=== PATIENT | male | born 1960 | race Caucasian/White ===

== ENCOUNTER 2023-04-08 21:03 | Inpatient (IN) | payer BC ==
[~2023-04-08] VITALS: Ht 188 cm; Wt 139.7 kg
[~2023-04-08 21:03] MED LIST: CLIN-22 PO; GLU500 PO; LOSA100T4 PO; MIC5 PO; OMEP20CA15 PO; RIVA20TA PO; SIMV-343 PO; SITA100T11 PO
[2023-04-08 21:15] VITALS: BP_SYST 195; PULSE 79; RESP 19; TEMP 98; O2SAT 99
[2023-04-08 21:52] LABS: BASOPHILS # (AUTO) 0.2 K/uL (0.0-0.2); BASOPHILS % (AUTO) 1.4 % (0.0-2.0); EOSINOPHILS % (AUTO) 0.2 % (0.0-4.0); HEMATOCRIT 39.7 % (36-54); HEMOGLOBIN 13.2 g/dL (14.0-18.0); LYMPHOCYTES # (AUTO) 0.6 K/uL (1.0-5.5); LYMPHOCYTES % (AUTO) 5.6 % (20.5-51.5); MEAN CORPUSCULAR HEMOGLOBIN 29 pg (27-31); MEAN CORPUSCULAR HGB CONC 33 % (32-36); MEAN CORPUSCULAR VOLUME 85 fL (79.0-98.0); MONOCYTES # (AUTO) 0.7 K/uL (0.0-1.0); MONOCYTES % (AUTO) 6.3 % (1.7-9.3); NEUTROPHILS # (AUTO) 9.4 K/uL (1.8-7.7); NEUTROPHILS % (AUTO) 86.5 % (40.0-70.0); PLATELET COUNT (AUTO) 192 K/uL (130-430); RED BLOOD CELL COUNT(AUTO) 4.64 MIL/uL (4.2-6.2); WHITE BLOOD COUNT (AUTO) 10.8 K/uL (4.8-10.8)
[2023-04-08 22:10] LABS: PROTHROMBIN TIME 10.7 SECS (9.5-12.5)
[2023-04-08 22:23] LABS: ALANINE AMINOTRANSFERASE 16 U/L (12-78); ALBUMIN 2.2 g/dL (3.4-4.8); ALCOHOL, BLOOD 4 mg/dL (<10); ANION GAP 13 (5-15); ASPARTATE AMINOTRANSFERASE 34 U/L (10-37); CHLORIDE 113 mmol/L (98-107); CREATININE 1.87 mg/dL (0.55-1.30); GFR AFRICAN AMERICAN 48 mL/min (>90); GLUCOSE 232 mg/dL (74-106); PHOSPHORUS 3.6 mg/dL (2.7-4.5); THYROID STIMULATING HORMONE 1.63 uIu/mL (0.34-4.82); TOTAL BILIRUBIN 0.4 mg/dL (0.0-1.0); UREA NITROGEN, BLOOD 32 mg/dL (8-21)
[2023-04-08 22:35] LABS: CALCIUM 6.9 mg/dL (8.4-11.0)
[2023-04-08] MEDS ORDERED: CALCIUM GLUCONATE 1 GM/10 ML VIAL IVP ONE (23:00)
[2023-04-08] MEDS ORDERED: NACL 0.9% 1,000 ML IV ONE (23:00)
[2023-04-08 23:57] LABS: CKMB RELATIVE INDEX 1.3 (0.0-2.9); CREATINE KINASE MB 15.5 ng/mL (0-3.6)
[2023-04-09] MEDS ORDERED: D5/0.45 NS 1,000 ML IV ONE (02:15)
[2023-04-09 02:21] LABS: BILIRUBIN,URINE NEGATIVE (NEGATIVE); COLOR,URINE YELLOW (YELLOW); GLUCOSE,URINE 2+ (NEGATIVE); KETONES,URINE TRACE (NEGATIVE); LEUKOCYTE ESTERASE ,URINE NEGATIVE (NEGATIVE); NITRITE, URINE NEGATIVE (NEGATIVE); PH,URINE 5.5 (5.0-8.0); PROTEIN URINE 3+ (NEGATIVE); UROBILINOGEN,URINE 0.2 (0.2-1.0)
[2023-04-09 02:29] LABS: BLOOD, URINE 1+ (NEGATIVE); CLARITY/URINE HAZY (CLEAR)
[2023-04-09 02:30] LABS: BACTERIA,URINE None Seen /HPF (None Seen); WBC,URINE 0-3 /HPF (0-3)
[2023-04-09 02:33] LABS: BARBITURATE, URINE NEGATIVE (NEG <=200); BENZODIAZEPINE, URINE NEGATIVE (NEG <=150); CANNABINOID, URINE NEGATIVE (NEG <=50); COCAINE, URINE POSITIVE (NEG <=150); METHAMPHETAMINES SCREEN,URINE NEGATIVE (NEG <=500); OPIATE, URINE NEGATIVE (NEG <=100); PHENCYCLIDINE SCREEN,URINE NEGATIVE (NEG <=25); UR TRICYCLIC ANTIDEPRESSANTS NEGATIVE (NEG <=300); URINE AMPHETAMINE NEGATIVE (NEG <=500); URINE METHADONE NEGATIVE (NEG <=200); URINE OXYCODONE SCREEN NEGATIVE (NEG <=100); URINE PROPOXYPHENE SCREEN NEGATIVE (NEG <=300)
[2023-04-09 04:21] VITALS: BP_SYST 179; PULSE 64; RESP 18; TEMP 97.2; O2SAT 98
[2023-04-09] MEDS: INSULIN REGULAR, HUMAN 100 UNITS/ML, 3 ML VIAL (humuLIN R) SUBCUT PRN ×4 (06:43→21:13)
[2023-04-09 07:00] VITALS: O2SAT 2
[2023-04-09 08:00] VITALS: BP_SYST 124; PULSE 85; RESP 18; TEMP 98.9; O2SAT 94
[2023-04-09 12:00] VITALS: BP_SYST 184; PULSE 80; RESP 18; TEMP 97.3; O2SAT 100
[2023-04-09 15:40] VITALS: BP_SYST 201; PULSE 74; RESP 18; TEMP 97.4; O2SAT 92
[2023-04-09] MEDS: cloNIDine HCL 0.2 MG TABLET PO PRN (18:53)
[2023-04-09 20:00] VITALS: BP_SYST 141; PULSE 73; RESP 18; TEMP 97.5; O2SAT 94
[2023-04-10] VITALS: BP_SYST 152; PULSE 72; RESP 18; TEMP 97.6; O2SAT 95
[2023-04-10] MEDS ORDERED: NALOXONE HCL 0.4 MG/ML AMP (NARCAN) IVP PRN ×2 (05:00)
[2023-04-10] MEDS ORDERED: HYDROcodone/ACETAMIN 5-325 MG TAB (NORCO/ VICODIN) PO PRN (05:00)
[2023-04-10] MEDS ORDERED: ONDANSETRON HCL 4 MG/2 ML VIAL IVP PRN (05:00)
[2023-04-10] MEDS ORDERED: LORazepam 2 MG/ML VIAL IVP PRN (05:00)
[2023-04-10] MEDS ORDERED: ACETAMINOPHEN 325 MG TABLET PO PRN (05:00)
[2023-04-10] MEDS ORDERED: HYDROcodone/ACETAMIN 10-325 MG TAB PO PRN (05:00)
[2023-04-10 05:26] LABS: BASOPHILS # (AUTO) 0.1 K/uL (0.0-0.2); BASOPHILS % (AUTO) 1.5 % (0.0-2.0); EOSINOPHILS # (AUTO) 0.5 K/uL (0.0-0.4); EOSINOPHILS % (AUTO) 7.1 % (0.0-4.0); HEMATOCRIT 36.4 % (36-54); HEMOGLOBIN 11.9 g/dL (14.0-18.0); LYMPHOCYTES # (AUTO) 1.4 K/uL (1.0-5.5); LYMPHOCYTES % (AUTO) 18.6 % (20.5-51.5); MEAN CORPUSCULAR HEMOGLOBIN 28 pg (27-31); MEAN CORPUSCULAR HGB CONC 33 % (32-36); MEAN CORPUSCULAR VOLUME 85 fL (79.0-98.0); MONOCYTES # (AUTO) 0.7 K/uL (0.0-1.0); MONOCYTES % (AUTO) 9.6 % (1.7-9.3); NEUTROPHILS # (AUTO) 4.7 K/uL (1.8-7.7); NEUTROPHILS % (AUTO) 63.2 % (40.0-70.0); PLATELET COUNT (AUTO) 187 K/uL (130-430); RED BLOOD CELL COUNT(AUTO) 4.29 MIL/uL (4.2-6.2); RED CELL DISTRIBUTION WIDTH 14.7 % (9.0-15.0); WHITE BLOOD COUNT (AUTO) 7.4 K/uL (4.8-10.8)
[2023-04-10 05:40] LABS: CALCIUM 8.2 mg/dL (8.4-11.0); CREATININE 1.77 mg/dL (0.55-1.30)
[2023-04-10] MEDS: CLINDAMYCIN HCL 150 MG CAPSULE PO SCH ×3 (07:23→22:09)
[2023-04-10 08:00] VITALS: BP_SYST 177; PULSE 54; RESP 20; TEMP 96.3; O2SAT 97
[2023-04-10] MEDS: PANTOPRAZOLE SODIUM 40 MG TAB PO SCH (08:39)
[2023-04-10] MEDS: glyBURIDE 5 MG TABLET PO SCH ×2 (08:40→17:06)
[2023-04-10] MEDS: metFORMIN HCL 500 MG TABLET PO SCH ×2 (08:41→17:06)
[2023-04-10] MEDS: cloNIDine HCL 0.2 MG TABLET PO PRN (08:43)
[2023-04-10] MEDS ORDERED: LOSARTAN POTASSIUM 50 MG TABLET (COZAAR) PO SCH (09:00)
[2023-04-10] MEDS ORDERED: OMEPRAZOLE Non-Formulary 20 MG CAPSULE.DR PO SCH (09:00)
[2023-04-10 12:08] VITALS: BP_SYST 134; PULSE 61; RESP 16; TEMP 97.6; O2SAT 95
[2023-04-10 16:00] VITALS: BP_SYST 150; PULSE 63; RESP 20; TEMP 97.4; O2SAT 95
[2023-04-10] MEDS: ATORVASTATIN 20 MG TABLET PO SCH (16:10)
[2023-04-10] MEDS ORDERED: METOPROLOL SUCCINATE 25 MG TAB.SR.24H (TOPROL XL) PO ONE (17:00)
[2023-04-10] MEDS ORDERED: hydrALAZINE HCL 10 MG TABLET PO ONE (17:00)
[2023-04-10] MEDS ORDERED: ATORVASTATIN 20 MG TABLET PO ONE (19:30)
[2023-04-10] MEDS: hydrALAZINE HCL 10 MG TABLET PO SCH (21:00)
[2023-04-10] MEDS: RIVAROXABAN 10 MG TABLET PO SCH (22:12)
[2023-04-11 00:17] VITALS: BP_SYST 138; PULSE 50; RESP 18; TEMP 97.5; O2SAT 99
[2023-04-11 08:00] VITALS: BP_SYST 159; PULSE 50; RESP 20; TEMP 96.9; O2SAT 98
[2023-04-11] MEDS: glyBURIDE 5 MG TABLET PO SCH (08:30)
[2023-04-11 08:55] LABS: PHOSPHORUS 4.4 mg/dL (2.7-4.5)
[2023-04-11] MEDS: LOSARTAN POTASSIUM 50 MG TABLET (COZAAR) PO SCH (09:00)
[2023-04-11] MEDS: hydrALAZINE HCL 10 MG TABLET PO SCH ×2 (09:00→20:39)
[2023-04-11] MEDS: METOPROLOL SUCCINATE 25 MG TAB.SR.24H (TOPROL XL) PO SCH (09:00)
[2023-04-11] MEDS: PANTOPRAZOLE SODIUM 40 MG TAB PO SCH (09:06)
[2023-04-11] MEDS: ATORVASTATIN 20 MG TABLET PO SCH (09:06)
[2023-04-11] MEDS: metFORMIN HCL 500 MG TABLET PO SCH ×2 (09:07→17:49)
[2023-04-11 12:00] VITALS: BP_SYST 142; PULSE 55; RESP 19; TEMP 97.6; O2SAT 97
[2023-04-11] MEDS: CLINDAMYCIN HCL 150 MG CAPSULE PO SCH ×2 (14:55→21:03)
[2023-04-11 16:00] VITALS: BP_SYST 149; PULSE 54; RESP 20; TEMP 97.1; O2SAT 97
[2023-04-11 20:00] VITALS: BP_SYST 170; PULSE 60; RESP 18; TEMP 98.1; O2SAT 97
[2023-04-11] MEDS: RIVAROXABAN 10 MG TABLET PO SCH (20:39)
[2023-04-12] VITALS: BP_SYST 165; PULSE 67; RESP 18; TEMP 97.7; O2SAT 96
[2023-04-12] MEDS: CLINDAMYCIN HCL 150 MG CAPSULE PO SCH ×3 (06:00→21:33)
[2023-04-12 06:49] LABS: BASOPHILS # (AUTO) 0.1 K/uL (0.0-0.2); BASOPHILS % (AUTO) 1.3 % (0.0-2.0); EOSINOPHILS # (AUTO) 1.1 K/uL (0.0-0.4); HEMATOCRIT 38.6 % (36-54); HEMOGLOBIN 12.8 g/dL (14.0-18.0); LYMPHOCYTES # (AUTO) 1.3 K/uL (1.0-5.5); LYMPHOCYTES % (AUTO) 17.3 % (20.5-51.5); MEAN CORPUSCULAR HEMOGLOBIN 28 pg (27-31); MEAN CORPUSCULAR HGB CONC 33 % (32-36); MEAN CORPUSCULAR VOLUME 84 fL (79.0-98.0); MONOCYTES # (AUTO) 0.7 K/uL (0.0-1.0); MONOCYTES % (AUTO) 8.9 % (1.7-9.3); NEUTROPHILS # (AUTO) 4.3 K/uL (1.8-7.7); NEUTROPHILS % (AUTO) 57.5 % (40.0-70.0); PLATELET COUNT (AUTO) 181 K/uL (130-430); RED BLOOD CELL COUNT(AUTO) 4.58 MIL/uL (4.2-6.2); RED CELL DISTRIBUTION WIDTH 15.3 % (9.0-15.0); WHITE BLOOD COUNT (AUTO) 7.5 K/uL (4.8-10.8)
[2023-04-12 07:21] LABS: ALBUMIN 2.3 g/dL (3.4-4.8); CALCIUM 8.2 mg/dL (8.4-11.0); CREATININE 1.84 mg/dL (0.55-1.30); PHOSPHORUS 4.3 mg/dL (2.7-4.5); TOTAL BILIRUBIN 0.4 mg/dL (0.0-1.0)
[2023-04-12] MEDS: hydrALAZINE HCL 10 MG TABLET PO SCH ×2 (09:31→21:32)
[2023-04-12] MEDS: ATORVASTATIN 20 MG TABLET PO SCH (09:32)
[2023-04-12] MEDS: METOPROLOL SUCCINATE 25 MG TAB.SR.24H (TOPROL XL) PO SCH (09:32)
[2023-04-12] MEDS: metFORMIN HCL 500 MG TABLET PO SCH ×2 (09:32→18:57)
[2023-04-12] MEDS: PANTOPRAZOLE SODIUM 40 MG TAB PO SCH (09:33)
[2023-04-12] MEDS: LOSARTAN POTASSIUM 50 MG TABLET (COZAAR) PO SCH (09:33)
[2023-04-12 11:14] VITALS: O2SAT 97
[2023-04-12] MEDS ORDERED: amLODIPine BESYLATE 5 MG TABLET PO ONE (12:15)
[2023-04-12 12:50] VITALS: BP_SYST 169; PULSE 57; RESP 17; TEMP 97.1; O2SAT 95
[2023-04-12 16:50] VITALS: BP_SYST 150; PULSE 59; RESP 18; TEMP 98; O2SAT 95
[2023-04-12 19:04] LABS: CHOLESTEROL 204 mg/dL (<200); HDL CHOLESTEROL 50 mg/dL (>45); TRIGLYCERIDES 170 mg/dL (30-150)
[2023-04-12 20:00] VITALS: BP_SYST 171; PULSE 58; RESP 18; TEMP 97.8; O2SAT 98
[2023-04-12] MEDS: RIVAROXABAN 10 MG TABLET PO SCH (21:32)
[2023-04-13] VITALS (7 sets, daily range): BP systolic 144–174; PULSE 56–68; RESP 16–18; TEMP 97.4–98.7; O2SAT 93–100
[2023-04-13] MEDS: CLINDAMYCIN HCL 150 MG CAPSULE PO SCH ×3 (05:45→22:24)
[2023-04-13 07:08] LABS: BASOPHILS # (AUTO) 0.1 K/uL (0.0-0.2); BASOPHILS % (AUTO) 1.3 % (0.0-2.0); EOSINOPHILS # (AUTO) 0.8 K/uL (0.0-0.4); EOSINOPHILS % (AUTO) 11.6 % (0.0-4.0); HEMATOCRIT 37.9 % (36-54); HEMOGLOBIN 12.6 g/dL (14.0-18.0); LYMPHOCYTES # (AUTO) 1.3 K/uL (1.0-5.5); LYMPHOCYTES % (AUTO) 18.4 % (20.5-51.5); MEAN CORPUSCULAR HEMOGLOBIN 28 pg (27-31); MEAN CORPUSCULAR HGB CONC 33 % (32-36); MEAN CORPUSCULAR VOLUME 85 fL (79.0-98.0); MONOCYTES # (AUTO) 0.7 K/uL (0.0-1.0); MONOCYTES % (AUTO) 9.9 % (1.7-9.3); NEUTROPHILS # (AUTO) 4.3 K/uL (1.8-7.7); NEUTROPHILS % (AUTO) 58.8 % (40.0-70.0); PLATELET COUNT (AUTO) 180 K/uL (130-430); RED BLOOD CELL COUNT(AUTO) 4.47 MIL/uL (4.2-6.2); RED CELL DISTRIBUTION WIDTH 15.6 % (9.0-15.0); WHITE BLOOD COUNT (AUTO) 7.3 K/uL (4.8-10.8)
[2023-04-13 07:39] LABS: CALCIUM 8.1 mg/dL (8.4-11.0); CREATININE 1.82 mg/dL (0.55-1.30)
[2023-04-13] MEDS: hydrALAZINE HCL 10 MG TABLET PO SCH (09:00)
[2023-04-13] MEDS: ATORVASTATIN 20 MG TABLET PO SCH (09:01)
[2023-04-13] MEDS: LOSARTAN POTASSIUM 50 MG TABLET (COZAAR) PO SCH (09:01)
[2023-04-13] MEDS: PANTOPRAZOLE SODIUM 40 MG TAB PO SCH (09:01)
[2023-04-13] MEDS: metFORMIN HCL 500 MG TABLET PO SCH ×2 (09:03→17:08)
[2023-04-13] MEDS: amLODIPine BESYLATE 5 MG TABLET PO SCH (09:03)
[2023-04-13] MEDS: METOPROLOL SUCCINATE 25 MG TAB.SR.24H (TOPROL XL) PO SCH (09:04)
[2023-04-13] MEDS: cloNIDine HCL 0.1 MG TABLET PO PRN (12:05)
[2023-04-13] MEDS: hydrALAZINE HCL 25 MG TABLET PO SCH ×4 (12:06→23:34)
[2023-04-13] MEDS ORDERED: SEMA0.25 SQ (13:24)
[2023-04-13] MEDS ORDERED: CLON0.1T PO (13:24)
[2023-04-13] MEDS: RIVAROXABAN 10 MG TABLET PO SCH (22:27)
[2023-04-14] VITALS (8 sets, daily range): BP systolic 160–191; PULSE 54–68; RESP 16–19; TEMP 97.4–98.9; O2SAT 95–98
[2023-04-14] MEDS: CLINDAMYCIN HCL 150 MG CAPSULE PO SCH ×3 (06:20→21:19)
[2023-04-14] MEDS: hydrALAZINE HCL 25 MG TABLET PO SCH ×3 (06:21→18:16)
[2023-04-14] MEDS: PANTOPRAZOLE SODIUM 40 MG TAB PO SCH (08:35)
[2023-04-14] MEDS: metFORMIN HCL 500 MG TABLET PO SCH ×2 (08:35→18:16)
[2023-04-14] MEDS: ATORVASTATIN 20 MG TABLET PO SCH (08:37)
[2023-04-14] MEDS: amLODIPine BESYLATE 5 MG TABLET PO SCH (08:38)
[2023-04-14] MEDS: METOPROLOL SUCCINATE 25 MG TAB.SR.24H (TOPROL XL) PO SCH (08:42)
[2023-04-14] MEDS: LOSARTAN POTASSIUM 50 MG TABLET (COZAAR) PO SCH (08:43)
[2023-04-14] MEDS: cloNIDine HCL 0.1 MG TABLET PO PRN (21:20)
[2023-04-14] MEDS: RIVAROXABAN 10 MG TABLET PO SCH (21:21)
[2023-04-15] MEDS: hydrALAZINE HCL 25 MG TABLET PO SCH ×4 (00:13→17:26)
[2023-04-15 00:37] VITALS: BP_SYST 97; PULSE 61; RESP 18; TEMP 97.2; O2SAT 56
[2023-04-15] MEDS: CLINDAMYCIN HCL 150 MG CAPSULE PO SCH ×2 (05:58→13:40)
[2023-04-15 07:20] VITALS: BP_SYST 138; PULSE 105; RESP 16; TEMP 96.9; O2SAT 92
[2023-04-15] MEDS: amLODIPine BESYLATE 5 MG TABLET PO SCH (09:53)
[2023-04-15] MEDS: PANTOPRAZOLE SODIUM 40 MG TAB PO SCH (09:53)
[2023-04-15] MEDS: METOPROLOL SUCCINATE 25 MG TAB.SR.24H (TOPROL XL) PO SCH (09:53)
[2023-04-15] MEDS: LOSARTAN POTASSIUM 50 MG TABLET (COZAAR) PO SCH (09:54)
[2023-04-15] MEDS: metFORMIN HCL 500 MG TABLET PO SCH ×2 (09:54→17:26)
[2023-04-15] MEDS: ATORVASTATIN 20 MG TABLET PO SCH (09:54)
[2023-04-15 12:00] VITALS: BP_SYST 111; BP_SYST 138; PULSE 105; PULSE 54; RESP 16; RESP 18; TEMP 96.9; TEMP 98.6; O2SAT 95; O2SAT 99
[2023-04-15 16:00] VITALS: BP_SYST 162; PULSE 60; RESP 18; TEMP 98.2; O2SAT 99
[2023-04-15 20:10] VITALS: BP_SYST 165; PULSE 66; RESP 18; TEMP 97.5; O2SAT 94
[2023-04-15 20:40] VITALS: BP_SYST 165; PULSE 66; RESP 18; TEMP 97.5; O2SAT 94
[2023-04-15] MEDS: cloNIDine HCL 0.1 MG TABLET PO PRN (20:57)
[2023-04-15] MEDS: RIVAROXABAN 10 MG TABLET PO SCH (21:03)
[2023-04-16] MEDS ORDERED: hydrALAZINE HCL 25 MG TABLET PO SCH
[2023-04-16] MEDS ORDERED: amLODIPine BESYLATE 5 MG TABLET PO SCH (09:00)
[2023-04-18 12:00] VITALS: BP_SYST 104; PULSE 98; RESP 20; TEMP 96.8
== END 2023-04-15 21:45 | disposition home or self-care (01) | DRG 64 ==
LOC: SED 21:03 → SMU 04-09 02:14
PROVIDERS: ADMIT Specialist; ATTEND Specialist
DX: I63.9 Cerebral infarction, unspecified (principal); E43 Unspecified severe protein-calorie malnutrition; N17.9 Acute kidney failure, unspecified; I82.503 Chronic embolism and thrombosis of unspecified deep veins of lower extremity, bilateral; G81.91 Hemiplegia, unspecified affecting right dominant side; I65.21 Occlusion and stenosis of right carotid artery; E78.5 Hyperlipidemia, unspecified; E83.52 Hypercalcemia; E88.09 Other disorders of plasma-protein metabolism, not elsewhere classified; F14.10 Cocaine abuse, uncomplicated; E66.01 Morbid (severe) obesity due to excess calories; E11.41 Type 2 diabetes mellitus with diabetic mononeuropathy; R29.702 NIHSS score 2; E11.51 Type 2 diabetes mellitus with diabetic peripheral angiopathy without gangrene; E11.65 Type 2 diabetes mellitus with hyperglycemia; I87.8 Other specified disorders of veins; Z68.39 Body mass index [BMI] 39.0-39.9, adult; Z74.01 Bed confinement status
CPT/HCPCS: 36415; 70450-TC; 70544; 70551; 71045; 76376; 76770; 80048; 80053; 80061; 80307; 81000; 82550; 82553; 82607; 83037; 83735; 83880; 84100; 84443; 84484; 85025; 85379; 85610-TC; 85730-TC; 92610-GN; 93005; 93306; 93880; 93970; 96361; 96374; 97110-GO; 97110-GP; 97116-GP; 97530-GO; 97530-GP; 97535-GO; 99291; G0482; J0610